=== PATIENT | male | born 1965 ===

== ENCOUNTER 2022-01-25 11:36 | Outpatient (REF) | payer OTHER, MEDICARE, SELFPAY ==
--- NOTE | ~2022-01-25 | XR_ITS ---
EXAMINATION: 1. RADIOGRAPHS STANDING AP BILATERAL KNEES 2. RADIOGRAPHS RIGHT KNEE, 2 VIEWS CLINICAL INFORMATION: Knee pain COMPARISON: Bilateral knee radiographs 02/05/2018 TECHNIQUE: Standing AP views of both knees were obtained. Lateral and patellar sunrise views of the right knee were additionally obtained. FINDINGS: Right knee: No fracture or dislocation. No suprapatellar joint effusion. Mild narrowing of the medial joint space height. Tiny tricompartmental marginal osteophytes. No focal soft tissue swelling of the anterior knee. Standing AP left knee: Mild narrowing of the medial joint space height. XR/XR knee standing BI IMPRESSION: Mild degenerative changes of both knees, comparable to 2018 imaging.
--- NOTE | ~2022-01-25 | XR_ITS ---
EXAMINATION: 1. RADIOGRAPHS STANDING AP BILATERAL KNEES 2. RADIOGRAPHS RIGHT KNEE, 2 VIEWS CLINICAL INFORMATION: Knee pain COMPARISON: Bilateral knee radiographs 02/05/2018 TECHNIQUE: Standing AP views of both knees were obtained. Lateral and patellar sunrise views of the right knee were additionally obtained. FINDINGS: Right knee: No fracture or dislocation. No suprapatellar joint effusion. Mild narrowing of the medial joint space height. Tiny tricompartmental marginal osteophytes. No focal soft tissue swelling of the anterior knee. Standing AP left knee: Mild narrowing of the medial joint space height. XR/XR knee RT 2V IMPRESSION: Mild degenerative changes of both knees, comparable to 2018 imaging.
== END 2022-01-25 11:37 | disposition home or self-care (01) ==
LOC: HO.HOSX 11:36
PROVIDERS: Visit Provider Orthopaedic Surgery
DX: M17.11 Unilateral primary osteoarthritis, right knee (principal)
CPT/HCPCS: 73560; 73565; 99202

== ENCOUNTER 2022-03-01 14:46 | Emergency (ER) | payer OTHER, SELFPAY ==
[2022-03-01 14:54] VITALS: BP 137/71; PULSE 87; RESP 16; TEMP 36.4; O2SAT 95; BMI 25.3
--- NOTE | 2022-03-01 16:36 | ED_ITS ---
HPI - General Adult General Chief complaint: Fall Stated complaint: Fall at work Time Seen by Provider: 03/01/22 16:36 Source: patient Mode of arrival: ambulatory Limitations: no limitations History of Present Illness HPI narrative: Patient is a 57 year old male presenting to the emergency department today with generalized body pain after a fall and a left foot wound. Patient states that he had a surgery on his left foot in November and he noticed that the surgical scar opened back up. Patient states that he tripped and fell at work causing generalized body pain. Patient denies hitting his head with the incident. Patient denies any loss of consciousness from the incident. Patient denies any dizziness, lightheadedness, abdominal pain, nausea, vomiting, fever, chills, blurry vision, double vision, loss of vision, chest pain, difficulty breathing, shortness of breath, back pain, night sweats, pain with urination, increased urinary frequency, increased urinary urgency, blood in his urine or stool, syncope or a near syncopal episode, recent trauma or falls, bowel incontinence, bladder incontinence, bowel retention, bladder retention, or any other complaints at this time. Onset (ago): day(s) Relieving factors: none Exacerbating factors: none Associated symptoms: denies other symptoms Treatments prior to arrival: none Related Data Home Medications Medication Instructions Recorded Confirmed naproxen sodium 220 mg capsule 440 mg PO DAILY 01/25/22 (Aleve) Previous Rx's Medication Instructions Recorded cephalexin 500 mg capsule 500 mg PO Q6H 7 Days #28 cap 03/01/22 Allergies Allergy/AdvReac Type Severity Reaction Status Date / Time No Known Allergies Allergy Unverified 06/29/20 15:26 bee stings Allergy Unknown hives Uncoded 03/01/22 15:01 Review of Systems Constitutional: Constitutional: Reports no additional constitutional complaints, Denies chills, Denies fever(s) and Denies night sweats Eyes: Eyes: Reports no additional eye complaints, Denies blurry vision, Denies change in vision, Denies diplopia, Denies eye discharge, Denies loss of vision and Denies eye pain ENT: Denies dizziness Cardiovascular: Cardiovascular: Reports no additional cardiovascular complaints, Denies chest pain, Denies lightheadedness, Denies Loss of Consciousness and Denies dyspnea Respiratory: Respiratory: Reports no additional respiratory complaints and Denies dyspnea Gastrointestinal: Gastrointestinal: Reports no additional gastrointestinal complaints, Denies abdominal pain, Denies melena, Denies hematochezia, Denies change in bowel habits and Denies change in stool character Genitourinary: Genitourinary: Reports no additional male genitourinary complaints, Denies hematuria, Denies oliguria, Denies difficulty urinating, D enies dysuria, Denies urinary frequency, Denies urinary hesitancy, Denies urinary incontinence and Denies urinary urgency Musculoskeletal: Musculoskeletal: Reports no additional musculoskeletal complaints, Denies numbness and Denies tingling Integumentary/Breasts: Comments: redness to the left foot Neurologic: Denies dizziness, Denies loss of vision, Denies numbness and Denies tingling Psychiatric: Psychiatric: Reports no additional psychiatric complaints Endocrine: Endocrine: Reports no additional endocrine complaints Hematologic/Lymphatic: Hematologic/Lymphatic: Reports no additional hematologic/lymphatic complaints Allergic/Immunologic: Allergic/Immunologic: Reports no additional allergic/immunologic complaints PMFSH Past Medical History Attestation statement: The following information was validated with the patient. Source: old records reviewed Surgical History H/O foot surgery H/O meniscectomy of right knee Social History Social History Advance Directives: No Advance Directives Information Provided: No Current occupational status: employed and other Current occupation: [employer] Physical Exam ED Vital Signs: Vital Signs - 24 hr 03/01/22 14:54 Temperature 97.6 F Pulse Rate 87 Respiratory Rate 16 Blood Pressure 137/71 Pulse Oximetry 95 BMI result Body Mass Index 25.3 Const General: cooperative, no acute distress, alert and awake Nutritional Appearance: well nourished Orientation/consciousness: patient oriented x3 Limitations: no limitations HENMT Head: Yes normal to inspection and Yes atraumatic Ears: hearing grossly normal bilaterally and external ears normal General nose exam: Normal external nose present, no nasal discharge noted and no epistaxis Face and sinus: Yes normal facial exam, No abrasion and No laceration Mouth: Normal oral and palatal mucosa present, no drooling and no muffled voice Eyes General: appearance normal, both eyes and all related structures Periorbital: periorbital findings normal Eyelids: Yes eyelids normal Conjunctivae: conjunctivae normal Pupils: Equal, round and reactive pupils present EOM: EOMs intact bilaterally Neck Neck: Yes normal visual inspection, Yes full ROM and Yes no lymphadenopathy Chest Chest palpation & inspection: normal inspection of the chest Resp Effort & Inspection: normal respiratory effort and able to speak in complete sentences Auscultation: clear to auscultation bilaterally Cardio Rate: regular rate Rhythm: regular rhythm GI Inspection: Yes normal to inspection General: Yes no CVA tenderness Back/Spine/Pelvis Back: no CVA tenderness Cervical Spine: normal cervical lordosis and cervical ROM normal Thoracic/Lumbar Spine: thoracic and lumbar spine normal to inspection Pelvis: no pain with anterior-posterior compression Skin Other: erythema and warmth present to the dorsal aspect of the left foot with streaking up the left lower leg Neuro General: patient oriented x3 and moves all extremities Cranial nerves: Yes Equal, round and reactive pupils present Cognition (Neuro): normal cognition Motor exam (neuro): 5/5 motor strength present throughout Sensory Exam: Normal double simultaneous stimulation for sensation Coordination: [id number] test normal Extrem General: Yes normal to inspection, Yes full ROM and Yes capillary refill normal Psych Appearance: grossly normal Mental Status: mental status grossly normal Affect: normal affect Attitude: cooperative Thought process: Normal thought process present Thought content: Normal thought content present Insight: Good insight present (Psych) Medical Decision Making MDM Narrative Medical decision making narrative: Patient is a 57 year old male presenting to the emergency department today with generalized body pain after a fall and left foot pain. Patient's physical exam showed erythema and warmth to the dorsal aspect of the left foot with streaking up the left lower leg. Patient's ROM, circulation, strength, and sensation were intact to the left lower extremity. I explained my physical exam findings to the patient. I answered all questions asked by the patient. Patient received IM Ceftriaxone. Patient has obvious cellulitis of the left foot. I stressed the importance of the patient taking his medication as prescribed. I stressed the importance of the patient following up with his primary care provider and area field manager. I stressed the importance of the patient returning to the emergency department immediately if his symptoms were to worsen or if he were to develop a ny dizziness, shortness of breath, difficulty breathing, chest pain, blurry vision, loss of vision, nausea, vomiting, abdominal pain, fever, chills, back pain, or any other complaints. Patient verbalized agreement and understanding with this treatment plan and discharge. Differential Diagnosis Differential Diagnosis: Left foot cellulitis, fall Medical Records Medical records reviewed: Yes I reviewed the patient's medical records. Discharge Plan Discharge Clinical Impression: Cellulitis, Fall Patient Disposition: Home, Self-Care Instructions: Cellulitis (DC) Additional Instructions: Follow up with your primary care provider and area field manager. Return to the emergency department immediately if your symptoms worsen or if you develop any dizziness, shortness of breath, difficulty breathing, chest pain, blurry vision, loss of vision, nausea, vomiting, abdominal pain, fever, chills, back pain, or any other complaints. Prescriptions: New cephalexin 500 mg capsule 500 mg PO Q6H 7 Days Qty: 28 0RF No Action naproxen sodium [Aleve] 220 mg capsule 440 mg PO DAILY 0RF Referrals: Tim Yañez MD [Primary Care Provider] - Print Language: Northern Irish
[2022-03-01] MEDS: Ketorolac Tromethamine 15 MG/ML VIAL IM (17:46)
[2022-03-01] MEDS: cefTRIAXone sodium 500 MG, Lidocaine HCl 1 % MPF 1 ML IM (17:47)
== END 2022-03-01 18:02 | disposition home or self-care (01) ==
PROVIDERS: Emergency Provider Emergency Medicine Emergency Medical Services; PCP Internal Medicine
DX: L03.116 Cellulitis of left lower limb (principal); Z91.81 History of falling
CPT/HCPCS: 87040; 96372; 99283; 99284; J0696; J1885

== ENCOUNTER → 2022-03-07 12:55 | Outpatient (BNVA) | payer OTHER, SELFPAY | PROVIDERS: PCP Internal Medicine; Visit Provider Orthopaedic Surgery | DX: M17.11 Unilateral primary osteoarthritis, right knee (principal) | CPT/HCPCS: 20610; 99212; J1100 ==

== ENCOUNTER → 2022-03-15 09:29 | Outpatient (BNVA) | payer OTHER, SELFPAY | PROVIDERS: PCP Internal Medicine; Visit Provider Physician Assistant Medical | DX: M75.42 Impingement syndrome of left shoulder (principal); M75.41 Impingement syndrome of right shoulder; S76.311D Strain of muscle, fascia and tendon of the posterior muscle group at thigh level, right thigh, subsequent encounter; X50.0XXD Overexertion from strenuous movement or load, subsequent encounter | CPT/HCPCS: 73030; 99204 ==

== ENCOUNTER → 2022-03-25 07:54 | Outpatient (BNVA) | payer OTHER, SELFPAY | PROVIDERS: PCP Internal Medicine; Visit Provider Internal Medicine | DX: M54.31 Sciatica, right side (principal) | CPT/HCPCS: 72110; 99214 ==

== ENCOUNTER → 2022-03-29 11:04 | Outpatient (BNVA) | payer OTHER, SELFPAY | PROVIDERS: PCP Internal Medicine; Visit Provider Internal Medicine | DX: M17.11 Unilateral primary osteoarthritis, right knee (principal) | CPT/HCPCS: 99202 ==

== ENCOUNTER 2022-03-29 14:46 | Emergency (ER) | payer MEDICAID, SELFPAY ==
--- NOTE | ~2022-03-29 | US_ITS ---
EXAMINATION: ULTRASOUND LEFT FOOT. CLINICAL INFORMATION: History resection of a Nguyen's neuroma the left foot. There is a round with postradiation. These are at the insertion sites of the dorsal of the lateral side of the foot. COMPARISON: None TECHNIQUE: Targeted grayscale ultrasound and color Doppler exam of the left foot FINDINGS: There are irregular areas of fluid in the soft tissues involving the dorsal and ventral side of the foot in the areas of the incisions. Hyperemia present on color Doppler of the dorsal and ventral side of the foot. On the ventral side there is a small fluid collection which concerning for abscess measuring 1.6 x 0.7 x 0.7 cm. US/US extremity nonvascular IMPRESSION: Hyperemia fluid collections consistent with inflammation/infection involving the dorsal and ventral side of the foot in the area of surgical incisions. Small fluid collection at the plantar side of the foot concerning for a small abscess.
--- NOTE | ~2022-03-29 | XR_ITS ---
EXAMINATION: XR FOOT, LEFT CLINICAL INFORMATION: Drainage from left foot COMPARISON: None TECHNIQUE: AP, lateral, and oblique views of the left foot. FINDINGS: Bone alignment is normal. No acute fracture or dislocation. There may be old trauma to the lateral proximal phalanx of the third toe. The joint spaces are normal. There is question of a small amount of air in the soft tissues adjacent to the lateral third metatarsal head and medial fifth MTP joint. No soft tissue foreign body is seen. XR/XR foot LT min 3V IMPRESSION: Question air in the soft tissues adjacent to the third metatarsal head and fifth MTP joints. No acute fracture, evidence of osteomyelitis or soft tissue foreign body seen.
[2022-03-29 14:58] VITALS: BP 129/86; PULSE 72; RESP 18; TEMP 36.8; O2SAT 97; BMI 25.7
--- NOTE | 2022-03-29 15:50 | ED_ITS ---
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 He reports that today he noticed purulent white discharge with surrounding erythema and pain with weight-bearing. He reports that he did not have this over the p ast few months. He denies any fevers, chills, body aches, history of MRSA, recent falls or trauma, lower extremity edema or calf tenderness or any other symptoms complaints or concerns at this time. MD complaint: other (Purulent discharge from left foot) Onset (ago): month(s) (Since February) Location: L foot Severity: mild Quality: aching Pain Consistency: constant Relieving factors: none Exacerbating factors: palpation (And weight-bearing) Context: other (Had left foot surgery in November) Associated symptoms: denies other symptoms Treatments prior to arrival: none Related Data Home Medications Medication Instructions Recorded Confirmed naproxen sodium 220 mg capsule 440 mg PO DAILY 01/25/22 (Aleve) celecoxib 200 mg capsule 200 mg PO DAILY 03/29/22 Previous Rx's Medication Instructions Recorded cephalexin 500 mg capsule 500 mg PO Q6H 7 days #28 caps 03/01/22 cephalexin 500 mg capsule 500 mg PO Q6H 14 days #56 caps 03/29/22 doxycycline monohydrate 100 mg 100 mg PO BID Cellulitis 14 days 03/29/22 tablet #28 tabs Allergies Allergy/AdvReac Type Severity Reaction Status Date / Time No Known Allergies Allergy Unverified 03/29/22 11:19 bee stings Allergy Unknown hives Uncoded 03/29/22 11:19 Review of Systems Review of Systems: Constitutional : No Weight loss, No Fever, No Chills, No Night Sweats, No Fatigue, No Malaise ENT/Mouth : No Hearing loss, No Ear Pain, No Nasal Congestion, No Sinus Pain, No Hoarseness, No sore throat, No Rhinorrhea, No Swallowing Difficulty Eyes: No Eye Pain, No Swelling, No Redness, No Foreign Body, No Discharge, No Vision Changes Cardiovascular : No Chest Pain, No SOB, No Dyspnea on Exertion, No Orthopnea, No Edema, No Palpitations Respiratory : No Cough, No Sputum, No Wheezing, No Smoke Exposure, No Dyspnea Gastrointestinal : No Nausea, No Vomiting, No Diarrhea, No Constipation, No abdominal Pain, No Hematochezia, No Melena Genitourinary : no irregular bleeding, No Dysuria, No Urinary Frequency, No Hematuria, No Urinary Incontinence, No Urgency, No Flank Pain, No Urinary Flow Changes, No Hesitancy Musculoskeletal : No joint pain, No Myalgias, No Joint Swelling Skin : + left foot wound with surrounding erythema purulent drainage, No rash Neuro : No Weakness, No Numbness, No Paresthesias, No Loss of Consciousness, No Dizziness, No Headache Psych : No Anxiety/Panic, No Depression, No SI/HI/AH/VH, No Social Issues, Heme/Lymph: No Bruising, No Bleeding,No Lymphadenopathy Endocrine : No Polyuria, No Polydipsia, No Temperature Intolerance Yes all other systems are reviewed and are negative [facility] Past Medical History Attestation statement: The following information was validated with the patient. Source: old records reviewed and nursing notes reviewed Surgical History H/O foot surgery H/O meniscectomy of right knee Social History Social History Alcohol intake: former Patient Tobacco Use Status: Former Tobacco user Advance Directives: No Advance Directives Information Provided: No Current occupational status: employed and other Current occupation: [employer] Physical Exam Vital Signs: Vital Signs: Last Vital Signs Temp 98.1 F 03/29/22 17:11 Pulse 61 03/29/22 17:11 Resp 18 03/29/22 17:11 BP 128/53 L 03/29/22 17:11 Pulse Ox 99 03/29/22 17:11 O2 Del Method 03/29/22 17:11 BMI result Body Mass Index 25.7 vital signs have been reviewed as normal and appeared to be correct. Blood pressure normal Heart rate normal. Respiration rate normal. Temperature normal. Oxygen saturation normal. Appearance: Alert. Oriented X3. No acute distress. Head: Normal external exam. Normocephalic. Atraumatic. Eyes: PERRLA. EOMI. Conjunctiva and sclera normal. Eyelids normal. ENT: Pharynx normal. Uvula midline. Moist mucous membranes. Neck: Normal inspection. Neck supple. FROM. CVS: Normal heart rate and rhythm. Respiratory: No respiratory distress. Painless inspiration. Skin: Skin warm and dry. Normal skin color. Normal skin turgor. To left foot at the metatarsal aspect of the 3rd and 4th digits dorsal aspect patient has an old suture line and at the distal aspect patient has a wound with yellow serosanguineous/purulent drainage when you apply pressure with mild surrounding erythema. No streaking/induration noted. No foreign bodies noted. No additional rashes/lesions/lacerations noted. Extremities: No lower extremity edema. Extremities exhibit normal range of mo tion. Extremities nontender. Neuro: Oriented X 3. No motor deficit. No sensory deficit. Reflexes normal. Normal steady gait. No focal neuro deficits noted. Vascular: + radial pulses/+ 2 distal pedal pulses/+2 dorsalis pedis b/l. Normal cap refill. No cyanosis noted to upper extremity nails and lower extremity toes nails. 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 He reports that today he noticed purulent white discharge with surrounding erythema and pain with weight-bearing. He reports that he did not have this over the past few months. Plan: Will obtain x-ray of left foot and soft tissue ultrasound to evaluate for possible abscess then re-evaluate. Reevaluation(s) Reevaluation #1: - x-ray revealed question air in the soft tissues adjacent to the 3rd metatarsal head and 5th MTP joints otherwise no acute fractures evidence of osteomyelitis or soft tissue foreign body seen. - extremity ultrasound revealed hyperemia fluid collections consistent with inflammation versus infection involving the dorsal and ventral side of the foot in the area of the surgical incisions. Small fluid collection at the plantar side of the foot concerning for a small abscess. - therefore I consulted with General surgery Dr. Burdick who reported that the patient should go back to the strength and conditioning coach in the podiatry should open the old incision where it is draining from and clean it out. Therefore explained this the patient he understands that he should continue warm soaks with Epson salts and will place him on doxycycline and Keflex for 14 days and he has a follow-up appointment with a strength and conditioning coach on Friday explained him to call on Friday for possible sooner appointment if not he can see him on Friday and to return if any new or worsening symptoms. I explained to him that I will also give him the wound clinic number and Dr. Diaz/Dr. Tapia's number as well and our strength and conditioning coach Dr. Perales. Patient understand is agreeable to this plan. Time: 17:23 MDM - Skin/Abscess/Foreign Bdy Medical Records Attestation: I reviewed the patient's medical records. Imaging Data Left foot x-ray: Attestation: I personally reviewed and interpreted this imaging study as follows: Radiologist's impression: FINDINGS: Bone alignment is normal. No acute fracture or dislocation. There may be old trauma to the lateral proximal phalanx of the third toe. The joint spaces are normal. There is question of a small amount of air in the soft tissues adjacent to the lateral third metatarsal head and medial fifth MTP joint. No soft tissue foreign body is seen.? XR/XR foot LT min 3V IMPRESSION: Question air in the soft tissues adjacent to the third metatarsal head and fifth MTP joints. No acute fracture, evidence of osteomyelitis or soft tissue foreign body seen. left foot ultrasound : Attestation: I personally reviewed and interpreted this imaging study as follows: Radiologist's impression: FINDINGS: There are irregular areas of fluid in the soft tissues involving the dorsal and ventral side of the foot in the areas of the incisions. Hyperemia present on color Doppler of the dorsal and ventral side of the foot. On the ventral side there is a small fluid collection which concerning for abscess measuring 1.6 x 0.7 x 0.7 cm.? US/US extremity nonvascular IMPRESSION: Hyperemia fluid collections consistent with inflammation/infection involving the dorsal and ventral side of the foot in the area of surgical incisions. Small fluid collection at the plantar side of the foot concerning for a small abscess. Discharge Plan Discharge Clinical Impression: Cellulitis, Abscess of skin or subcutaneous tissue Patient Disposition: Home, Self-Care Instructions: Cellulitis (ED), Abscess (ED), Warm Compress or Soak (ED) Additional Instructions: Please follow-up with her strength and conditioning coach for further evaluation treatment and I&D of your abscess/incision that you have there. Return if any new or worsening symptoms. I also gave the number to our general surgeons our strength and conditioning coach and our wound clinic. Prescriptions: New cephalexin 500 mg capsule 500 mg PO Q6H 14 Days Qty: 56 0RF doxycycline monohydrate 100 mg tablet 100 mg PO BID 14 Days Qty: 28 0RF No Action cephalexin 500 mg capsule 500 mg PO Q6H 7 Days Qty: 28 0RF naproxen sodium [Aleve] 220 mg capsule 440 mg PO DAILY celecoxib 200 mg capsule 200 mg PO DAILY Referrals: [facility] [place] Wound Care Management [Provider Group] - 2 days Tim Yañez MD [Primary Care Provider] - 2 days Jurgen Diaz MD [Physician] - 2 days Sandor Perales [Physician] - 2 days Interventions: ED Discharge Assessment Last Done: 03/29/22 17:45
--- NOTE | 2022-03-29 16:52 | PC.NURSE ---
PT WITH A SMALL AMOUNT OF FLUID DRAINAGE FROM THE PLANTAR SURFACE SCAR. HE REPORTS PAIN WITH WEIGHT BEARING, RADIOLOGY STUDIES ARE COMPLETED AND READ, AWAITING PROVIDER FOR CARE PLAN
[2022-03-29 17:11] VITALS: BP 128/53; PULSE 61; RESP 18; TEMP 36.7; O2SAT 99
--- NOTE | 2022-03-29 17:45 | PC.NURSE ---
went over discharge instructions as ordered by provider . contact information given for follow up with aquacultural worker supervisor . no questions at this time .
== END 2022-03-29 17:46 | disposition home or self-care (01) ==
PROVIDERS: Emergency Provider Emergency Medicine; PCP Internal Medicine
DX: L03.116 Cellulitis of left lower limb (principal); L02.612 Cutaneous abscess of left foot; Z98.890 Other specified postprocedural states
CPT/HCPCS: 73630; 76882; 99284

== ENCOUNTER → 2022-04-09 07:49 | Outpatient (BNVA) | payer OTHER, SELFPAY | PROVIDERS: PCP Internal Medicine; Visit Provider Internal Medicine | DX: M25.812 Other specified joint disorders, left shoulder (principal); M25.811 Other specified joint disorders, right shoulder; M79.661 Pain in right lower leg | CPT/HCPCS: 99213 ==

== ENCOUNTER 2022-04-24 05:48 | Outpatient (REF) | payer OTHER, SELFPAY | END 2022-04-24 05:49 | disposition home or self-care (01) | LOC: HO.RADIR 05:48 | PROVIDERS: Visit Provider Internal Medicine | DX: M25.561 Pain in right knee (principal); M17.11 Unilateral primary osteoarthritis, right knee | CPT/HCPCS: 64447 ==

== ENCOUNTER → 2022-04-30 07:56 | Outpatient (BNVA) | payer OTHER, SELFPAY | PROVIDERS: PCP Internal Medicine; Visit Provider Internal Medicine | DX: M75.42 Impingement syndrome of left shoulder (principal); M75.41 Impingement syndrome of right shoulder; M25.561 Pain in right knee | CPT/HCPCS: 99213 ==

== ENCOUNTER → 2022-05-07 07:52 | Outpatient (BNVA) | payer OTHER, SELFPAY | PROVIDERS: PCP Internal Medicine; Visit Provider Internal Medicine | DX: M25.812 Other specified joint disorders, left shoulder (principal); M25.811 Other specified joint disorders, right shoulder; M25.561 Pain in right knee | CPT/HCPCS: 99213 ==

== ENCOUNTER → 2022-05-28 07:51 | Outpatient (BNVA) | payer OTHER, SELFPAY | PROVIDERS: PCP Internal Medicine; Visit Provider Internal Medicine | DX: M25.811 Other specified joint disorders, right shoulder (principal) | CPT/HCPCS: 99213 ==

== ENCOUNTER 2022-06-06 13:18 | Outpatient (REF) | payer MEDICAID, SELFPAY | END 2022-06-06 13:19 | disposition home or self-care (01) | LOC: HO.HOSX 13:18 | PROVIDERS: Visit Provider Orthopaedic Surgery | DX: M75.41 Impingement syndrome of right shoulder (principal); M75.42 Impingement syndrome of left shoulder | CPT/HCPCS: 20610; 99212; J1100 ==

== ENCOUNTER → 2022-06-18 08:27 | Outpatient (BNVA) | payer OTHER, SELFPAY | PROVIDERS: PCP Internal Medicine; Visit Provider Internal Medicine | DX: M75.41 Impingement syndrome of right shoulder (principal); M75.42 Impingement syndrome of left shoulder | CPT/HCPCS: 99213 ==

== ENCOUNTER → 2022-07-11 15:15 | Outpatient (BNVA) | payer OTHER, SELFPAY | PROVIDERS: PCP Internal Medicine; Visit Provider Internal Medicine | DX: M25.811 Other specified joint disorders, right shoulder (principal); M25.812 Other specified joint disorders, left shoulder | CPT/HCPCS: 99213 ==

== ENCOUNTER → 2022-07-30 07:57 | Outpatient (BNVA) | payer OTHER, SELFPAY | PROVIDERS: PCP Internal Medicine; Visit Provider Internal Medicine | DX: M75.41 Impingement syndrome of right shoulder (principal); M75.42 Impingement syndrome of left shoulder | CPT/HCPCS: 99213 ==

== ENCOUNTER → 2022-08-12 14:38 | Outpatient (BNVA) | payer OTHER, SELFPAY | PROVIDERS: PCP Internal Medicine; Visit Provider Orthopaedic Surgery | DX: M75.41 Impingement syndrome of right shoulder (principal); M75.42 Impingement syndrome of left shoulder; M17.11 Unilateral primary osteoarthritis, right knee | CPT/HCPCS: 99212 ==

== ENCOUNTER → 2022-08-13 08:20 | Outpatient (BNVA) | payer OTHER, SELFPAY | PROVIDERS: PCP Internal Medicine; Visit Provider Physician Assistant Medical | DX: M75.41 Impingement syndrome of right shoulder (principal); M75.42 Impingement syndrome of left shoulder; M54.2 Cervicalgia; S39.012D Strain of muscle, fascia and tendon of lower back, subsequent encounter; X58.XXXD Exposure to other specified factors, subsequent encounter | CPT/HCPCS: 72040; 99214 ==

== ENCOUNTER → 2022-08-27 07:49 | Outpatient (BNVA) | payer OTHER, SELFPAY | PROVIDERS: PCP Internal Medicine; Visit Provider Internal Medicine | DX: M75.41 Impingement syndrome of right shoulder (principal); M75.42 Impingement syndrome of left shoulder; M47.812 Spondylosis without myelopathy or radiculopathy, cervical region | CPT/HCPCS: 99213 ==

== ENCOUNTER → 2022-09-17 07:50 | Outpatient (BNVA) | payer OTHER, SELFPAY | PROVIDERS: PCP Internal Medicine; Visit Provider Internal Medicine | DX: M25.511 Pain in right shoulder (principal); M25.512 Pain in left shoulder; M75.41 Impingement syndrome of right shoulder; M75.42 Impingement syndrome of left shoulder; G54.2 Cervical root disorders, not elsewhere classified | CPT/HCPCS: 99213 ==

== ENCOUNTER 2022-10-16 17:00 | Outpatient (RCR) | payer OTHER, MEDICAID, SELFPAY ==
--- NOTE | 2022-07-15 17:47 | MHC.PT.EP ---
[facility] [place] Office [place] Office [place] Office [address] Jag Sl[address] [phone] F: [phone] F: [phone] F: [phone] F: [phone] Physical Therapy Plan of Care Date of Evaluation: Date of Surgery: n/a Diagnosis: B impingement shoulders Assessment: Patient is a 57 year old male presenting to PT with complaints of pain in his B shoulders. Pt reports onset of pain began 06/21/2021 due to a lifting injury at work. He presents today with impairments in pain, ROM, shoulder strength, +impingement, posture. 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 Pt expresses snf goal of reducing pain, and is motivated to work towards this in PT. Clinical presentation today is most consistent with signs and sx associated with possible shoulder impingement and pt will benefit from skilled PT to address the following problems and impairments noted upon evaluation: pain, ROM, shoulder strength, +impingement, posture. These problems limit the patient with the following functional activities: reaching, lifting, work, carrying, sleeping, laundry. The prescribed treatment plan of care is medically necessary. Co-morbidities of none were identified and taken into considerations of plan of care. Pt was educated on HEP, role of PT, prognosis, POC. Frequency and Duration: The patient will be seen 2 x week x 4 weeks Short Term Goals: Pt will demonstrate improved postural awareness by sitting with biomechanically correct posture without cues throughout session to improve overall postural function in 2 weeks. Pt will demonstrate full and pain free ROM of B shoulders in all directions in 2 weeks. Pt will improved B shoulder strength by 1/3 MMT in 2 weeks. Fdc Goals: Pt will demonstrate improved SPADI score by 13 points in 4 weeks for improved functional mobility. Pt will demonstrate ability to carry groceries with min to no pain in 4 weeks for return to PLOF. Pt will demonstrate ability to tolerate a full work day with min to no pain in 4 weeks for improved tolerance to work. Pt will demonstrate ability to lift 10# with min to no pain in 4 weeks for return to PLOF. Treatment Plan: Modalities to reduce pain, spasms and effusion. Manual therapy to restore motion and function. Therapeutic exercise to improve strength and flexibility. Neuromuscular re-education for posture and balance. Therapeutic activities to return to functional activities of daily living. Electronically signed by: Elma Leon, PT, DPT, ATC Please sign and return to therapist. Thank you for your referral.
--- NOTE | 2022-10-21 16:08 | MHC.PT.DC ---
[facility] [place] Office [place] Office [place] Office [address] Sl[address] [phone] F: [phone] F: [phone] F: [phone] F: [phone] Physical Therapy Discharge Report Diagnosis: B impingement shoulders Date of Surgery: n/a Date of Evaluation: 07/15/22 Date of Discharge: 10/21/22 Treatments to Date: 13 Cancellations to Date: 2 No Shows to Date: 0 Discharge Status: Independent with HEP Discharge Summary: Pt saw [facility] at last scheduled appointment. D/c was discussed with pt at this time as he is planning to see a specialist. Therefore pt to be d/c from skilled PT. Electronically signed by: Elma Leon, PT, DPT, ATC Please sign and return to therapist. Thank you for your referral.
== END 2022-10-21 16:08 | disposition home or self-care (01) ==
LOC: HO.PTCHIC 17:00
PROVIDERS: PCP Internal Medicine; Visit Provider Orthopaedic Surgery
DX: M75.41 Impingement syndrome of right shoulder (principal); M75.42 Impingement syndrome of left shoulder; M24.812 Other specific joint derangements of left shoulder, not elsewhere classified
CPT/HCPCS: 97110; 97161

== ENCOUNTER → 2023-04-21 14:07 | Outpatient (BNVA) | payer SELFPAY | PROVIDERS: PCP Internal Medicine; Visit Provider Physician Assistant Medical | DX: Z02.79 Encounter for issue of other medical certificate (principal) ==

== ENCOUNTER 2024-03-02 14:57 | Emergency (ER) | payer OTHER, SELFPAY ==
--- NOTE | ~2024-03-02 | XR_ITS ---
EXAMINATION: XR LUMBOSACRAL SPINE CLINICAL INFORMATION: Low back pain after falling COMPARISON: 03/25/2022 TECHNIQUE: Three views of the lumbosacral spine. FINDINGS: No fracture or destructive process. There is disc space narrowing with marginal osteophyte formation at L3-L4. Alignment preserved. SI joints symmetric. XR/XR lumbar spine 2-3V IMPRESSION: Degenerative changes observed but no acute fracture.
--- NOTE | ~2024-03-02 | XR_ITS ---
EXAMINATION: XR KNEE, LEFT CLINICAL INFORMATION: Twisting injury COMPARISON: None available. TECHNIQUE: Four views of the left knee. FINDINGS: No fracture or joint effusion. Alignment is anatomic. Joint spaces are maintained. No abnormal soft tissue calcification. XR/XR knee LT 2V IMPRESSION: Unremarkable left knee.
[2024-03-02 15:31] VITALS: BP 146/75; PULSE 77; RESP 16; TEMP 36.6; O2SAT 97; BMI 24.0
--- NOTE | 2024-03-02 15:32 | ED_ITS ---
HPI - General Adult General Chief complaint: Fall Stated complaint: fall at work Time Seen by Provider: 03/02/24 16:25 Source: patient and RN notes reviewed Mode of arrival: ambulatory Limitations: no limitations History of Present Illness ED Provider: Sary Leonard PA-C HPI narrative: This is a 59-year-old male, with no known medical problems, who presents emergency department complaints of left knee pain and back pain status post mechanical fall which occurred at work yesterday. Patient states that at approximately 3:30 p.m. yesterday he was throwing away items into a dumpster while at work and while he was lifting he felt a ?twinge? in his back which caused him to rotate his torso, and left knee, and ultimately and fall down landing directly onto his left knee. He denies hitting his head or loss of consciousness. He states that he has been able to bear weight on his left knee however reports that this causes him to have more pain. He states no saddle anesthesia, no urinary or bowel incontinence or retention. No numbness, tingling, or weakness. He states history of meniscal tear in his right knee which was surgically operated on several years ago by [facility]. No other complaints or concerns at this time. MD complaint: Left knee pain, back on the Onset (ago): day(s) Location: back and lower extremity Severity: moderate Quality: aching Pain Consistency: constant Relieving factors: none Exacerbating factors: none Associated symptoms: denies other symptoms Treatments prior to arrival: none Related Data Home Medications ?Medication ?Instructions ?Recorded ?Confirmed celecoxib 200 mg capsule 200 mg PO DAILY 03/29/22 Previous Rx's ?Medication ?Instructions ?Recorded cyclobenzaprine 10 mg tablet 10 mg PO BEDTIME PRN muscle spasm 03/02/24 #7 tabs lidocaine 5 % topical patch 1 patch topical DAILY #30 ea 03/02/24 (Lidoderm) Allergies Allergy/AdvReac Type Severity Reaction Status Date / Time No Known Allergies Allergy Verified 03/02/24 15:32 Review of Systems Review of Systems: Yes all other systems are reviewed and are negative Constitutional: Constitutional: Reports as per [facility] Past Medical History Surgical History H/O foot surgery H/O meniscectomy of right knee Social History Social History Alcohol intake: former Patient Tobacco Use Status: Former Tobacco user Advance Directives: No Advance Directives Information Provided: No Current occupational status: employed and other Current occupation: [employer] Physical Exam ED Vital Signs: Vital Signs - 24 hr 03/02/24 15:31 Temperature 97.9 F Pulse Rate 77 Respiratory Rate 16 Blood Pressure 146/75 H Pulse Oximetry 97 Oxygen Delivery Method Room Air BMI result Body Mass Index 24.0 Const General: cooperative, comfortable and no acute distress Orientation/consciousness: patient oriented x3 Limitations: no limitations HENMT Head: Yes normal to inspection, Yes normocephalic and Yes atraumatic Ears: hearing grossly normal bilaterally General nose exam: Normal external nose present Face and sinus: Yes normal facial exam Mouth: Normal oral and palatal mucosa present, oropharynx normal and moist mucous membranes Throat: Yes posterior oropharynx normal Eyes General: appearance normal, both eyes and all related structures Eyelids: Yes eyelids normal Conjunctivae: conjunctivae normal Sclerae: sclerae normal Pupils: Equal, round and reactive pupils present EOM: EOMs intact bilaterally Neck Neck: Yes normal visual inspection, Yes full ROM and Yes no lymphadenopathy Lymphatic: no lymphadenopathy noted Chest Chest palpation & inspection: normal inspection of the chest Resp Effort & Inspection: normal respiratory effort and able to speak in complete sentences Auscultation: clear to auscultation bilaterally, no crackles, no rales, no rhonchi and no wheezes Cardio Rate: regular rate Rhythm: regular rhythm Heart sounds: S1 normal heart sound present and S2 normal heart sound present GI Inspection: Yes normal to inspection Back/Spine/Pelvis Other: Lumbar spine with no obvious bony deformity or swelling. No erythema, edema, ecchymosis. Tenderness to palpation along the lumbar paraspinous muscles. Skin General skin exam: no rashes or lesions noted Trauma: no lacerations or abrasions Wounds: no wounds Neuro General: patient oriented x3 and moves all extremities Cranial nerves: Yes Equal, round and reactive pupils present Extrem Other: Left knee with no obvious bony deformity, swelling, or edema. No open wounds or abrasions. Left knee with tenderness palpation along the anterior patella, no joint laxity. Pain with valgus strain. DP pulse 2 +. Decreased active range of motion of the left knee secondary to pain, passive range of motion intact General: Yes normal to inspection Right upper extremity: normal to inspection Left upper extremity: normal to inspection Right lower extremity: normal to inspection Left lower extremity: normal to inspection Course Course Course Narrative: This is a Rapid Medical Examination (RME) performed by Nimco Sharp PA-C in triage. Full HPI, ROS, assessment and treatment plan per primary provider in the Main ED. 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 reports falling 2 steps backward off of a ladder while holding a rolled carpet, twisting his left knee and landing on his back. has tried to follow up with work connection however cannot get any straight answers . denies numbness/tingling/weakness of the lower extremities, saddle anesthesia, or bladder incontinence or retention. Ambulating with antalgic gait. No midline spinous tenderness or step off deformity. No paraspinal muscle tenderness. Plan: xrs Reevaluation(s) Reevaluation #1: X-rays reviewed, degenerative changes seen in the back, left knee x-ray un remarkable. I reviewed these x-rays and agree with the radiology report. Discussed findings with patient. Discharged with muscle relaxants and Lidoderm patches. He has naproxen at home which he will take. Placed in Lawrence wrap and given crutches for knee Also given orthopedic referral as well as workman's comp information. Given return precautions. He understands agrees with plan. Patient stable for discharge. Time: 17:32 Medical Decision Making Medical Decision Making [facility] Narrative: This is a 59-year-old male, with no known medical problems, who presents emergency department with complaints of left knee pain and back pain status post mechanical fall which occurred yesterday afternoon at work. On arrival, patient mildly hypertensive at 146/75, all other vital signs within normal limits. On examination, patient does have tenderness palpation along the anterior patella as well as pain with valgus strain. Patient has no midline spine tenderness, he does have tenderness palpation along the right lumbar paraspinous muscles without any gross abnormalities seen. Differential diagnoses include left knee ligamentous internal derangement, knee strain, contusion, bony fracture- unlikely. DVT less likely given patient has no calf tenderness and HPI does not support this. Back pain differentials including includes lumbago versus musculoskeletal spasm / strain versus sciatica. No back pain red flags on history or physical. Presentation not consistent with malignancy (lack of history of malignancy, lack of B symptoms), fracture (no trauma, no bony tenderness to palpation), cauda equina syndrome (no bowel or urinary incontinence/retention, no saddle anesthesia, no distal weakness), A pyelonephritis (afebrile, no CVAT, no urinary symptoms). Given the clinical picture, x-ray of the knee and spine was obtained and is pending at this time. Differential Diagnosis Differential Diagnoses: The differential diagnosis associated with the presentation includes See above Admission/Observation Consideration of admission/observation: Escalation of care including admission/observation considered Escalation of care including admission/observation considered however given workup today not warranted at this time. Radiology Impression Discussion of test interpretation with radiology: I have reviewed the radiologist's reading. Radiologist Impression: EXAMINATION: XR LUMBOSACRAL SPINE CLINICAL INFORMATION: Low back pain after falling COMPARISON: 03/25/2022 TECHNIQUE: Three views of the lumbosacral spine. FINDINGS: No fracture or destructive process. There is disc space narrowing with marginal osteophyte formation at L3-L4. Alignment preserved. SI joints symmetric. XR/XR lumbar spine 2-3V IMPRESSION: Degenerative changes observed but no acute fracture. Dictated By: Jacinto Duncan MD EXAMINATION: XR KNEE, LEFT CLINICAL INFORMATION: Twisting injury COMPARISON: None available. TECHNIQUE: Four views of the left knee. FINDINGS: No fracture or joint effusion. Alignment is anatomic. Joint spaces are maintained. No abnormal soft tissue calcification. XR/XR knee LT 2V IMPRESSION: Unremarkable left knee. Dictated By: Annita Rodriguez MD Discharge Plan Discharge Clinical Impression: Back strain, Knee strain Patient Disposition: Home, Self-Care Instructions: Muscle Strain (ED), Knee Pain (ED), Back Pain (ED) Additional Instructions: You were seen in the emergency department due to back pain and knee pain after a work related injury. Your knee x-ray does not show any abnormalities. Your lumbar spine x-ray does show degenerative changes or arthritis, there was no new injury seen. Please rest, ice, elevate your left leg as well as use Lawrence wrap as needed for comfort. Take ibuprofen and/or Tylenol as needed for pain. Gentle range of motion will also help. Avoid strenuous exercises until you are fully recovered. You need to follow-up with Orthopedics, call tomorrow to make an appointment. If any new or worsening symptoms occur including but not limited to worsening pain, numbness, tingling, weakness, chest pain, shortness of breath, please return for re-evaluation. Prescriptions: New cyclobenzaprine 10 mg tablet 10 mg PO BEDTIME PRN (Reason: muscle spasm) Qty: 7 0RF lidocaine [Lidoderm] 5 % adhesive patch,medicated 1 patch topical DAILY Qty: 30 0RF Rx Instructions: leave on most painful area for up to 12 hrs No Action celecoxib 200 mg capsule 200 mg PO DAILY Referrals: [facility] [Provider Group] Print Language: Venezuelan
[2024-03-02 17:42] VITALS: BP 139/79; PULSE 57; RESP 18; TEMP 36.7; O2SAT 98
== END 2024-03-02 17:45 | disposition home or self-care (01) ==
PROVIDERS: Emergency Provider Emergency Medicine; PCP Internal Medicine
DX: S86.912A Strain of unspecified muscle(s) and tendon(s) at lower leg level, left leg, initial encounter (principal); S39.012A Strain of muscle, fascia and tendon of lower back, initial encounter; W11.XXXA Fall on and from ladder, initial encounter; Y93.89 Activity, other specified; Y92.89 Other specified places as the place of occurrence of the external cause; Y99.0 Civilian activity done for income or pay; M25.562 Pain in left knee
CPT/HCPCS: 72100; 73560; 99282; 99283